=== PATIENT | female | born 1945 | race Caucasian/White ===

== ENCOUNTER → 2017-02-21 | Outpatient (CLI) | payer MEDICARE, BC ==
[~2017-02-21] MED LIST: ASPIRIN 81M81 MG/TA2 PO; BENADRYL25 M2 PO; NORCO 325 MG-51 TAB PO; PRINZIDE 25 MG-1 TAB PO; TYLENOL 500MG500 MG PO; ZOCOR 40MG40 MG PO
== END ==
LOC: MC.RAD 13:00
DX: D24.2 Benign neoplasm of left breast (principal); C50.112 Malignant neoplasm of central portion of left female breast; Z80.3 Family history of malignant neoplasm of breast

== ENCOUNTER → 2018-03-29 | Outpatient (CLI) | payer MEDICARE, BC | LOC: MC.RAD 09:56 | DX: Z12.31 Encounter for screening mammogram for malignant neoplasm of breast (principal); Z98.890 Other specified postprocedural states ==

== ENCOUNTER → 2019-04-19 | Outpatient (CLI) | payer MEDICARE, BC | LOC: MC.RAD 15:45 | DX: Z12.31 Encounter for screening mammogram for malignant neoplasm of breast (principal) ==

== ENCOUNTER → 2020-07-15 | Outpatient (CLI) | payer MEDICARE, BC | LOC: MC.RAD 11:26 | DX: Z12.31 Encounter for screening mammogram for malignant neoplasm of breast (principal); Z85.3 Personal history of malignant neoplasm of breast ==

== ENCOUNTER → 2021-08-11 | Outpatient (CLI) | payer MEDICARE, BC | LOC: MC.RAD 10:12 | DX: Z12.31 Encounter for screening mammogram for malignant neoplasm of breast (principal); Z85.3 Personal history of malignant neoplasm of breast; Z98.890 Other specified postprocedural states; Z92.3 Personal history of irradiation ==

== ENCOUNTER → 2022-08-12 | Outpatient (CLI) | payer MEDICARE, BC | LOC: MC.RAD 10:33 | DX: Z12.31 Encounter for screening mammogram for malignant neoplasm of breast (principal); N63.14 Unspecified lump in the right breast, lower inner quadrant; N64.89 Other specified disorders of breast; Z85.3 Personal history of malignant neoplasm of breast; Z90.12 Acquired absence of left breast and nipple ==

== ENCOUNTER → 2023-12-12 | Outpatient (CLI) | payer MEDICARE, BC | LOC: MC.RAD 06:59 | DX: C50.412 Malignant neoplasm of upper-outer quadrant of left female breast (principal) ==

== ENCOUNTER → 2024-09-13 | Outpatient (CLI) | payer MEDICARE ==
[~2024-09-13] MED LIST changes: +CALCIUM 600600 MG PO; +HYGROTON 2525 MG/TAB PO; +NORVASC 5MG5 MG/TAB PO; +PRINIVIL40 MG PO; +THE MEDICINE S200 M2 PO; +VITAMIN C500 MG PO; +VITAMIN D31000 I1 PO
== END ==
LOC: MC.RAD 09:07
DX: Z12.31 Encounter for screening mammogram for malignant neoplasm of breast (principal); C50.412 Malignant neoplasm of upper-outer quadrant of left female breast; Z98.890 Other specified postprocedural states